=== PATIENT | female | born 1955 | race Caucasian/White ===

== ENCOUNTER → 2021-07-23 | Outpatient (CLI) | payer MEDICARE ==
[~2021-07-23] MED LIST: CASIRIVIMAB (REGN10933) (EUA) 600 MG, IMDEVIMAB (REGN10987) (EUA) 600 MG in SODIUM CHLO... IVPB ONE; SODIUM CHLORIDE 0.9% 50 ML IVPB ONE; SODIUM CHLORIDE 0.9% 500 ML 500 ML in EMPTY BAG 1 BAG IV PRN
[2021-07-23 10:36] VITALS: TEMP 97.7
[2021-07-23 10:57] VITALS: BP 146/90; PULSE 69; RESP 16
== END ==
LOC: PROCWHC3 10:00
PROVIDERS: ATTEND Radiology Diagnostic Radiology
DX: U07.1 COVID-19 (principal); I10 Essential (primary) hypertension
CPT/HCPCS: 96360; Q0244; M0243